=== PATIENT | male | born 1995 | race Caucasian/White ===

== ENCOUNTER 2019-01-08 20:20 | Emergency (ER) | payer MEDICAID ==
[~2019-01-08] VITALS: Ht 177.8 cm; Wt 65.8 kg
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
[2019-01-08 20:46] VITALS: BP 129/83
== END 2019-01-08 22:04 | disposition home or self-care (01) ==
LOC: ER 20:20
DX: S30.22XA Contusion of scrotum and testes, initial encounter (principal); V87.8XXA Person injured in other specified noncollision transport accidents involving motor vehicle (traffic), initial encounter; Y93.55 Activity, bike riding; Y92.89 Other specified places as the place of occurrence of the external cause; Y99.8 Other external cause status
CPT/HCPCS: 76870-TC

== ENCOUNTER 2019-11-12 20:59 | Emergency (ER) | payer MEDICAID ==
[~2019-11-12] VITALS: Ht 177.8 cm; Wt 65.8 kg
--- NOTE | 2019-11-12 21:09 | NUR ---
PT CAME TO ER BED 1 WITH C/O RECTAL PAIN 1x MONTH. BLOOD NOTED DURING BOWEL MOVEMENT. PT STATES THAT HE HAS HEMORRHOIDS AND HAS BEEN PROGRESSIVELY GETTING WORSE. 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 AAOX.4 NO SOB. BREATHING EVENLY AND UNLABORED. CONNECTED TO MONITOR.
[2019-11-12 21:11] VITALS: BP 141/73
--- NOTE | 2019-11-12 21:17 | NUR ---
SEEN AND EXAMINED BY
--- NOTE | 2019-11-12 21:25 | NUR ---
Patient discharged to home in stable condition. Written and verbal after care instructions given. Patient verbalizes understanding of instruction.
== END 2019-11-12 21:33 | disposition home or self-care (01) ==
LOC: ER 21:03
DX: K64.9 Unspecified hemorrhoids (principal); F17.200 Nicotine dependence, unspecified, uncomplicated